=== PATIENT | female | born 1975 | race Caucasian/White ===

== ENCOUNTER 2021-11-26 09:51 | Inpatient (IN) | payer OTHER, SELFPAY ==
--- NOTE | ~2021-11-26 | US_ITS ---
EXAMINATION: US ABDOMEN COMPLETE CLINICAL INFORMATION: Right upper quadrant and epigastric tenderness to palpation. Nausea, vomiting, bilateral flank pain.. COMPARISON: None TECHNIQUE: Real-time imaging of the abdominal viscera. FINDINGS: PANCREAS: Normal. ABDOMINAL AORTA: The proximal, mid, and distal segments are normal in caliber. INFERIOR VENA CAVA: Visualized portions are normal. LIVER: The liver is normal in size. The liver contour is normal. Diffuse increased echogenicity of the liver parenchyma suggesting steatosis or other hepatocellular disease. No focal hepatic lesion. There is no intrahepatic biliary duct dilatation seen. GALLBLADDER: The gallbladder is physiologically distended. Multiple mobile gallstones are present. No evidence of gallbladder wall thickening or pericholecystic fluid. Impacted in the neck of the gallbladder. The gallbladder wall thickness is at the upper limits of normal for size. There is no pericholecystic fluid. The patient does report tenderness over the region of the gallbladder. COMMON BILE DUCT: Normal in caliber measuring 0.6 cm in diameter. RIGHT KIDNEY: Normal. No hydronephrosis. No renal calculi or focal parenchymal lesions. The kidney measures 12.3 cm in maximum dimension. LEFT KIDNEY: Normal. No hydronephrosis. No renal calculi or focal parenchymal lesions. The kidney measures 12.2 cm in maximum dimension. SPLEEN: Normal. The spleen measures 9.7 cm in maximum dimension. FREE FLUID: None. US/US abdomen complete IMPRESSION: There are gallstones and tenderness over the region of the gallbladder with gallbladder wall at the upper limits of normal for size and no pericholecystic fluid. Findings are somewhat equivocal though suggestive for cholecystitis. Would correlate with clinical exam findings and if there are concerns for cholecystitis, further evaluation could be considered with HIDA. Hepatic steatosis.
[2021-11-26 09:58] VITALS: BP 133/85; BP 160/80; PULSE 105; PULSE 110; RESP 18; TEMP 36.9; O2SAT 93; O2SAT 98; BMI 38.2
--- NOTE | 2021-11-26 10:11 | ECG_ITS ---
Test Reason : vomitting Blood Pressure : / mmHG Vent. Rate : 102 BPM Atrial Rate : 102 BPM P-R Int : 126 ms QRS Dur : 080 ms QT Int : 394 ms P-R-T Axes : 055 083 075 degrees QTc Int : 513 ms Sinus tachycardia Otherwise normal ECG When compared with ECG of 16-FEB-2009 22:22, QT has lengthened Referred By: Estrellita Caputo Electronically Signed By:CLARIBEL EVANGELISTA
--- NOTE | 2021-11-26 10:15 | ED_ITS ---
HPI - General Adult General Chief complaint: Nausea/Vomiting/Diarrhea Stated complaint: ABD PAIN, NSUSEA,VOMITING X'S 3 DAYS Time Seen by Provider: 11/26/21 10:04 Source: patient Mode of arrival: ambulatory History of Present Illness HPI narrative: 45-year-old female with no significant past medical history presenting to the ED complaining of upper abdominal pain, nausea, and vomiting x3 days. Reports unable to tolerate p.o. denies fever, chills, diarrhea/constipation, dysuria/hematuria. Admits was seen at [facility] on Thursday had labs and COVID-19 test drawn in waiting room and left prior to eval Onset (ago): day(s) Related Data Home Medications Medication Instructions Recorded Confirmed albuterol sulfate 90 mcg/actuation 2 puff INHALATION Q6H PRN 11/26/21 11/26/21 aerosol inhaler calcium carbonate 600 mg-vitamin 1 tab PO BID 11/26/21 11/26/21 D3 10 mcg (400 unit) tablet Allergies Allergy/AdvReac Type Severity Reaction Status Date / Time No Known Allergies Allergy Unverified 04/19/20 16:17 Review of Systems Review of Systems: Constitutional: No Fever, No Chills, No Night Sweats, No Fatigue, No Malaise ENT/Mouth: No Ear Pain, No Nasal Congestion, No sore throat, No Rhinorrhea, No Swallowing Difficulty Eyes: No Eye Pain, No Swelling, No Redness Cardiovascular: No Chest Pain, No SOB, No Edema, No Palpitations Respiratory: No Cough, No Sputum, No Dyspnea Gastrointestinal: + Nausea, + Vomiting, No Diarrhea, No Constipation, + Abdominal pain Genitourinary: No irregular bleeding, No Dysuria, No Urinary Frequency, No Hematuria, No Flank Pain, No Urinary Flow Changes, No Hesitancy Musculoskeletal: No joint pain, No Myalgias, No Joint Swelling Skin: No Skin Lesions, No rash Neuro: No Weakness, No Dizziness, No Headache Yes all other systems are reviewed and are negative [facility] Past Medical History Attestation statement: The following information was validated with the patient. Social History Social History Advance Directives: No Advance Directives Information Provided: No Physical Exam ED Vital Signs: Vital Signs - 24 hr 11/26/21 09:58 Temperature 98.4 F Pulse Rate 110 H Respiratory Rate 18 Blood Pressure 133/85 Pulse Oximetry 93 BMI result Body Mass Index 38.2 Const General: cooperative, healthy appearing, no acute distress, well developed, alert, awake and Physically active Orientation/consciousness: patient oriented x3 Limitations: no limitations HENMT Head: Yes normal to inspection and Yes atraumatic Ears: hearing grossly normal bilaterally General nose exam: Normal external nose present Face and sinus: Yes normal facial exam Eyes General: appearance normal, both eyes and all related structures EOM: EOMs intact bilaterally Neck Neck: Yes normal visual inspection and Yes no meningeal signs Resp Effort & Inspection: normal respiratory effort and no respiratory distress Auscultation: clear to auscultation bilaterally Cardio Rate: regular rate Heart sounds: S1 normal heart sound present and S2 normal heart sound present GI Inspection: Yes normal to inspection Palpation (GI): Soft to palpation, Tenderness to palpation present (GI) in the epigastrum and in the RUQ, no guarding and not rigid General: Yes CVA tenderness bilateral Back/Spine/Pelvis Back: CVA tenderness Skin Rashes: no rashes Wounds: no wounds Neuro General: patient oriented x3, tone normal and no meningeal signs Gait exam (Neuro): Normal gait present Extrem General: Yes normal to inspection Course Course Course Narrative: -1119--leukocytosis of 18,000 > likely reactive from nausea/vomiting, lactic/blood cultures will be obtained and empiric Zosyn. Still low suspicion for severe sepsis. Labs otherwise unremarkable -labs otherwise unremarkable. Lactic acid negative. US abdomen complete IMPRESSION: There are gallstones and tenderness over the region of the gallbladder with gallbladder wall at the upper limits of normal for size and no pericholecystic fluid. Findings are somewhat equivocal though suggestive for cholecystitis. Would correlate with clinical exam findings and if there are concerns for cholecystitis, further evaluation could be considered with HIDA. ? Hepatic steatosis. >> surgery, Dr. Dean consulted -Dr. Dean evaluated patient in the ED, plan for cholecystectomy likely tomorrow Medical Decision Making [facility] Narrative Medical decision making narrative: 45-year-old female with no significant past medical history presenting to the ED complaining of upper abdominal pain, nausea, and vomiting x3 days. On exam tachycardic likely from dehydration and pain, nontoxic, abdomen soft with epigastric/RUQ and bilateral CVA tenderness, no rebound or guarding. Concern for cholecystitis/lithiasis vs pancreatitis vs ? Renal stone or pyelo. Lower concern for appendicitis/diverticulitis. Unlikely ACS Plan: EKG, labs, UA, abdomen ultrasound, IVF, symptomatic remedies, re-evaluate Low concern for severe sepsis at this time Medical Records Medical records reviewed: Yes I reviewed the patient's medical records. Lab Data Lab results reviewed: Yes I reviewed the patient's lab results. Result diagrams: 11/26/21 10:28 11/26/21 10:28 Labs: Lab Results 11/26/21 11/26/21 11/26/21 Range/Units 10:28 10:28 11:38 WBC 18.0 H (4.8-10.8) X10*3/uL RBC 4.94 (4.20-5.50) X10*6/uL Hgb 14.3 (12.0-16.0) g/dl Hct 42.6 (37.0-47.0) % MCV 86.2 (80.0-98.0) fL MCH 28.9 (27.0-33.0) pg MCHC 33.6 (31.0-35.0) g/dl RDW 13.0 (11.0-16.0) % Plt Count 531 H (160-400) X10*3/uL MPV 9.6 (9.4-12.3) fL Immature Gran % (Auto) 0.4 (0.0-0.4) % Neut % (Auto) 76.9 H (45-73) % Lymph % (Auto) 15.4 L (20-40) % [place] % (Auto) 6.2 (2-11) % Eos % (Auto) 0.5 (0-4) % Baso % (Auto) 0.6 (0-2) % Lymph # (Auto) 2.8 (1.2-4.9) X10*3/uL [place] # (Auto) 1.1 (0.1-1.2) X10*3/uL Eos # (Auto) 0.1 (0.0-0.4) X10*3/uL Baso # (Auto) 0.1 (0.0-0.2) X10*3/uL Abs Immat Gran (auto) 0.08 H (0.00-0.03) X10*3/uL Absolute Neuts (auto) 13.9 H (2.0-8.3) x10*3/uL Absolute Nucleated RBC 0.000 (0.0-0.012) X10*3/uL Nucleated RBC % (auto) 0.0 (0.0-0.2) /100WBC Sodium 137 (135-145) mmol/L Potassium 3.9 (3.3-5.1) mmol/L Chloride 105 (96-108) mmol/L Carbon Dioxide 23 (22-29) mmol/L Anion Gap 13 (12-20) BUN 10 (9-16) mg/dL Creatinine 0.71 (0.5-1.4) mg/dL Estim Creat Clear Calc 101.1 Estimated GFR > 60 Random Glucose 114 (60-115) mg/dL Lactic Acid 1.3 (0.5-2.0) mmol/L Calcium 9.9 (8.4-10.2) mg/dL Magnesium 1.9 (1.6-2.6) mg/dL Total Bilirubin 0.6 (0.0-1.0) mg/dL Direct Bilirubin 0.2 (0.0-0.5) mg/dL AST 18 (5-31) U/L ALT 19 (0-31) U/L Alkaline Phosphatase 91 (39-117) U/L Total Protein 7.7 (6.5-8.0) g/dL Albumin 4.1 (3.5-5.0) g/dL Lipase 21 (8-78) U/L COVID-19 ([facility]) (Negative) COVID-19 Clin Com 11/26/21 Range/Units 11:43 WBC (4.8-10.8) X10*3/uL RBC (4.20-5.50) X10*6/uL Hgb (12.0-16.0) g/dl Hct (37.0-47.0) % MCV (80.0-98.0) fL MCH (27.0-33.0) pg MCHC (31.0-35.0) g/dl RDW (11.0-16.0) % Plt Count (160-400) X10*3/uL MPV (9.4-12.3) fL Immature Gran % (Auto) (0.0-0.4) % Neut % (Auto) (45-73) % Lymph % (Auto) (20-40) % [place] % (Auto) (2-11) % Eos % (Auto) (0-4) % Baso % (Auto) (0-2) % Lymph # (Auto) (1.2-4.9) X10*3/uL [place] # (Auto) (0.1-1.2) X10*3/uL Eos # (Auto) (0.0-0.4) X10*3/uL Baso # (Auto) (0.0-0.2) X10*3/uL Abs Immat Gran (auto) (0.00-0.03) X10*3/uL Absolute Neuts (auto) (2.0-8.3) x10*3/uL Absolute Nucleated RBC (0.0-0.012) X10*3/uL Nucleated RBC % (auto) (0.0-0.2) /100WBC Sodium (135-145) mmol/L Potassium (3.3-5.1) mmol/L Chloride (96-108) mmol/L Carbon Dioxide (22-29) mmol/L Anion Gap (12-20) BUN (9-16) mg/dL Creatinine (0.5-1.4) mg/dL Estim Creat Clear Calc Estimated GFR Random Glucose (60-115) mg/dL Lactic Acid (0.5-2.0) mmol/L Calcium (8.4-10.2) mg/dL Magnesium (1.6-2.6) mg/dL Total Bilirubin (0.0-1.0) mg/dL Direct Bilirubin (0.0-0.5) mg/dL AST (5-31) U/L ALT (0-31) U/L Alkaline Phosphatase (39-117) U/L Total Protein (6.5-8.0) g/dL Albumin (3.5-5.0) g/dL Lipase (8-78) U/L COVID-19 ([facility]) Negative (Negative) COVID-19 Clin Com See Note ECG Data Attestation: I personally reviewed and interpreted this ECG as follows: Interpretation: EKG sinus tachycardia rate of 102. OK interval 126. QT 394, length when compared to prior EKGs. No STEMI. nonischemic Discharge Plan Discharge Clinical Impression: Acute cholecystitis Patient Disposition: Admitted As Inpatient
[2021-11-26 10:38] LABS: MANUAL DIFF FLAG NO
[2021-11-26 10:40] LABS: Basophils Absolute Auto 0.1 X10*3/uL (0.0-0.2); Basophils Percent Auto 0.6 % (0-2); Eosinophils Absolute Auto 0.1 X10*3/uL (0.0-0.4); Eosinophils Percent Auto 0.5 % (0-4); Hematocrit 42.6 % (37.0-47.0); Hemoglobin 14.3 g/dl (12.0-16.0); Imm Gran Abs Auto 0.08 X10*3/uL (0.00-0.03); Imm Gran Pct Auto 0.4 % (0.0-0.4); Lymphocytes Absolute Auto 2.8 X10*3/uL (1.2-4.9); Lymphocytes Percent Auto 15.4 % (20-40); Mean Corpuscular HGB Conc 33.6 g/dl (31.0-35.0); Mean Corpuscular Hemoglobin 28.9 pg (27.0-33.0); Mean Corpuscular Volume 86.2 fL (80.0-98.0); Mean Platelet Volume 9.6 fL (9.4-12.3); Monocytes Absolute Auto 1.1 X10*3/uL (0.1-1.2); Monocytes Percent Auto 6.2 % (2-11); Neutrophils Absolute Auto 13.9 x10*3/uL (2.0-8.3); Neutrophils Percent Auto 76.9 % (45-73); Platelet Count 531 X10*3/uL (160-400); Red Blood Count 4.94 X10*6/uL (4.20-5.50)
[2021-11-26 10:58] LABS: Alanine Aminotransferase 19 U/L (0-31); Albumin Level 4.1 g/dL (3.5-5.0); Alkaline Phosphatase 91 U/L (39-117); Anion Gap 13 (12-20); Aspartate Amino Transferase 18 U/L (5-31); Bilirubin Direct 0.2 mg/dL (0.0-0.5); Bilirubin Total 0.6 mg/dL (0.0-1.0); Blood Urea Nitrogen 10 mg/dL (9-16); Calcium 9.9 mg/dL (8.4-10.2); Carbon Dioxide 23 mmol/L (22-29); Chloride 105 mmol/L (96-108); Creatinine Clr Calc Pharmacy 101.1; Estimated Glomerular Filt Rate > 60; Glucose Random 114 mg/dL (60-115); Lipase 21 U/L (8-78); Magnesium 1.9 mg/dL (1.6-2.6); Potassium 3.9 mmol/L (3.3-5.1); Sodium 137 mmol/L (135-145); Total Protein 7.7 g/dL (6.5-8.0)
[2021-11-26] MEDS: Famotidine/PF 20 MG/2 ML VIAL IVPUSH (11:09)
[2021-11-26] MEDS: 0.9 % Sodium Chloride 1,000 ML 999 ML IV ×2 (11:09→11:55)
[2021-11-26] MEDS: Lidocaine HCl Viscous 2 % 15 ML SOLUTION MUCOUS MEM (11:09)
[2021-11-26] MEDS: Ketorolac Tromethamine 15 MG/ML VIAL IVPUSH (11:09)
[2021-11-26] MEDS: Magnesium Hydrox/Alum Hydrox 30 ML ORAL.SUSP PO (11:09)
--- NOTE | 2021-11-26 11:44 | PHA.MEDREC ---
Pharmacy Consult ? Medication Reconciliation Pharmacy has completed the medication reconciliation. No remarkable issues. Marie Whaley, MonaeD
[2021-11-26] MEDS: Piperacillin Sodium/Tazobactam 3.375 GM in 0.9 % Sodium Chloride 50 ML IV ×3 (11:55→23:47)
[2021-11-26 11:58] LABS: Lactic Acid 1.3 mmol/L (0.5-2.0)
[2021-11-26 12:12] LABS: COVID-19 Test Negative (Negative); IDNOW Serial# 16C4AD1C
--- NOTE | 2021-11-26 12:53 | PM.HPGS ---
History of Present Illness History of Present Illness Date of Service: 11/26/21 Chief complaint: acute cholecystitis Narrative: Dasia Gomez is a 45 year old female presenting with complaints of abdominal pain in the upper abdomen for three days. The pain is associated with nausea, vomiting and anorexia. She denies fever, chills, diarrhea, constipation, or bloody stools. She presents to the ED for further evaluation. Review of Systems Constitutional: Constitutional: Denies chills, Denies fever(s), Denies headache(s) and Denies poor appetite ENT: Denies dizziness and Denies headache(s) Cardiovascular: Cardiovascular: Denies chest pain, Denies rapid heart rate, Denies palpitations and Denies slow heart rate Respiratory: Respiratory: Denies chest congestion, Denies cough, Denies pain on inspiration and Denies wheezing Gastrointestinal: Gastrointestinal: Reports abdominal pain, Reports bloating, Denies change in stool character, Denies constipation, Denies diarrhea, Reports nausea, Reports vomiting and Denies hematemesis Musculoskeletal: Musculoskeletal: Denies back pain, Denies arthralgias, Denies joint swelling and Denies numbness Integumentary/Breasts: Skin/Breast: Denies change in pigmentation, Denies erythema and Denies rash Neurologic: Denies dizziness, Denies headache(s) and Denies numbness Psychiatric: Psychiatric: Denies anxiety and Denies depression Endocrine: Endocrine: Denies palpitations Hematologic/Lymphatic: Hematologic/Lymphatic: Denies easy bleeding, Denies easy bruising and Denies lymphadenopathy Allergic/Immunologic: Allergic/Immunologic: Denies wheezing PMFSH Social History Social History Advance Directives: No Advance Directives Information Provided: No Meds Allergies Allergy/AdvReac Type Severity Reaction Status Date / Time No Known Allergies Allergy Unverified 04/19/20 16:17 Active Medications: Current Medications Pharmacy Consult (Consult Rx Perform Med Rec) 1 each MISCELLANE ONCE PRN PRN Reason: Consult order Home Medications Medication Instructions Recorded Confirmed Last Taken Type albuterol sulfate 90 mcg/actuation 2 puff INHALATION Q6H PRN 11/26/21 11/26/21 Unknown History aerosol inhaler calcium carbonate 600 mg-vitamin 1 tab PO BID 11/26/21 11/26/21 Unknown History D3 10 mcg (400 unit) tablet Physical Exam Vital Signs: Vital Signs: Last Vital Signs Temp 98.4 F 11/26/21 09:58 Pulse 110 H 11/26/21 09:58 Resp 18 11/26/21 09:58 BP 133/85 11/26/21 09:58 Pulse Ox 93 11/26/21 09:58 BMI result Body Mass Index 38.2 Const: General: cooperative, comfortable and well developed Nutritional Appearance: well nourished Orientation/consciousness: patient oriented x3 Eyes: Sclerae: sclerae normal EOM: EOMs intact bilaterally Neck: Neck: Yes normal visual inspection Resp: Effort & Inspection: normal respiratory effort, no cough, no respiratory distress and no stridor Cardio: Jugular venous distension: no JVD GI: Inspection: Yes normal to inspection Palpation (GI): Soft to palpation, Tenderness to palpation present (GI) in the RUQ and Lorenzo's sign positive, no guarding, not rigid and No Rebound tenderness present Percussion: Yes normal to percussion Auscultation: normal bowel sounds Rectal Exam - Female: deferred Skin: Other: normal color General skin exam: dry skin Rashes: no rashes Neuro: General: patient oriented x3 and no focal motor deficits Extrem: General: Yes full ROM and Yes no clubbing, cyanosis or edema Psych: Appearance: grossly normal Results Results Labs: Short CBC 11/26/21 Range/Units 10:28 WBC 18.0 H (4.8-10.8) X10*3/uL Hgb 14.3 (12.0-16.0) g/dl Hct 42.6 (37.0-47.0) % Plt Count 531 H (160-400) X10*3/uL BMP 11/26/21 10:28 Sodium 137 Potassium 3.9 Chloride 105 Carbon Dioxide 23 BUN 10 Creatinine 0.71 Calcium 9.9 Liver Function 11/26/21 Range/Units 10:28 Total Bilirubin 0.6 (0.0-1.0) mg/dL Direct Bilirubin 0.2 (0.0-0.5) mg/dL AST 18 (5-31) U/L ALT 19 (0-31) U/L Alkaline Phosphatase 91 (39-117) U/L Albumin 4.1 (3.5-5.0) g/dL Assessment and Plan (1) Acute cholecystitis: Status: Acute Plan 45 year old female patient presenting with compliants of abdominal pain in the RUQ found on ultrasound to have multiple gallstones in the gallbladder and tenderness on palpation of the gallbladder. Findings are consistent with acute cholecystitis due to cholelithiasis. I discussed the treatment options and recommended a laparoscopic or possible open cholecystectomy. After discussion of the procedure, alternatives and risks, she consents to the surgery. She will be added on to the OR schedule for tomorrow. She may have clear liquids today, NPO after midnight. Quality Stroke Does the patient have a stroke diagnosis?: No VTE Prior VTE?: No VTE Risk Level:: Surgical - moderate VTE Device Contraindication: N/A - Device Ordered VTE Drug Contraindication: Treatment Not Indicated Procedures Date of Service Date of Service: 11/26/21
--- NOTE | 2021-11-26 12:57 | PC.NURSE ---
Dr. Santiago at bedside
[2021-11-26 13:17] LABS: Appearance Urine CLEAR; Color Urine YELLOW; Glucose Urine UA NEG (NEG); Leukocyte Esterase Urine TRACE (NEG); Nitrite Urine NEG (NEG); PH 6.5 (5.0-8.0); Specific Gravity - Urine 1.015 (1.005-1.025); UACC Culture Trigger NO; Urine Blood 2+ (NEG); Urine Ketones NEG (NEG); Urine Protein 1+ MG/DL (NEG-TRACE)
[2021-11-26 13:57] LABS: Squamous Epithelial Cell Urine 2+ /LPF
[2021-11-26 13:58] LABS: Bacteria Urine TRACE /LPF; WBC Urine 0-2 /HPF (0-4)
[2021-11-26 13:59] LABS: RBC Urine 0-2 /HPF (0)
[2021-11-26] MEDS: Dextrose 5 % and Lactated Ring 1,000 ML 125 ML IVCONT ×2 (13:59→23:51)
[2021-11-26 15:05] VITALS: BP 125/78; PULSE 87; TEMP 37.3; O2SAT 96
[2021-11-26 16:00] VITALS: BP 148/90; PULSE 87; RESP 18; TEMP 37; O2SAT 97
--- NOTE | 2021-11-26 16:48 | PC.NURSE ---
pt reporting pain, reports however that she does not feel that her pain is severe enough for oxycodone/dilaudid which are ordered for PRN. TC sent to Dr. Dean for PRN Tylenol.
[2021-11-26] MEDS: Acetaminophen 325 MG TABLET 650 MG PO (17:05)
[2021-11-26] MEDS: ondansetron HCL 4 MG/2 ML VIAL IVPUSH (17:05)
[2021-11-26 19:14] VITALS: BP 137/81; PULSE 80; RESP 18; TEMP 37.1; O2SAT 98
[2021-11-26] MEDS: Zolpidem Tartrate 5 MG TABLET PO (23:49)
[2021-11-26] MEDS: 0.9 % Sodium Chloride Flush 3 ML SYRINGE IVFLUSH (23:51)
[2021-11-27] VITALS (13 sets, daily range): BP systolic 104–159; BP diastolic 68–94; PULSE 80–97; RESP 16–20; TEMP 36.2–37.2; O2SAT 95–100
[2021-11-27] MEDS: Piperacillin Sodium/Tazobactam 3.375 GM in 0.9 % Sodium Chloride 50 ML IV (06:23)
--- NOTE | 2021-11-27 08:29 | MHC.CM.PN ---
CM met with Patient at bedside. Patient lives in an apartment with her 2 Sons, ages 11 & 21 years of age. Patient is functionally independent and working. Home no services is the goal and CM has initiated and will follow for dc planning. PCP is from [address] [place] [address] in [facility] and Patient has received [facility] vax X2.
[2021-11-27] MEDS: Dextrose 5 % and Lactated Ring 1,000 ML 125 ML IVCONT (08:37)
[2021-11-27] MEDS: 0.9 % Sodium Chloride Flush 3 ML SYRINGE IVFLUSH ×2 (08:39→22:35)
[2021-11-27 11:13] LABS: UPreg QC Valid YES; Urine Pregnancy NEGATIVE (NEGATIVE)
--- NOTE | 2021-11-27 13:08 | MHC.SHP ---
Pre-Procedural Eval Section A Date of Service: 11/27/21 The patient is an INPATIENT: Yes Section B Chief Complaint: acute cholecystitis Allergies: Allergies Allergy/AdvReac Type Severity Reaction Status Date / Time No Known Allergies Allergy Unverified 04/19/20 16:17 Plan Diagnosis/Plan: Unchanged I have reviewed the history and physical and performed a pertinent physical examination on my patient. No changes have occurred unless specified.
--- NOTE | 2021-11-27 13:16 | P.CONAN_ITS ---
[facility] Active Problems Active Problems: All Active Problems (Updated 11/26/21 @ 13:14 by SANDEEP Cabrera) Acute cholecystitis (Acute) Past Medical History Functional capacity: independent ambulation Patient : No Family History Family history of problems with anesthesia: No Surgical History History of Problems with Anesthesia: No Social History Social History Household Members: Children Housing: House Do you presently have visiting nurse or other home services: No Patient Tobacco Use Status: Current everyday Tobacco user Tobacco use type: Cigarette Cigarettes Per Day: 7 e-Cigarette/Vaping Use: Currently Using Second Hand Smoke Exposure: Yes Substance Use Type: Marijuana service: No Current occupational status: employed Meds Allergies Allergy/AdvReac Type Severity Reaction Status Date / Time No Known Allergies Allergy Unverified 04/19/20 16:17 Active Medications: Current Medications Acetaminophen (Acetaminophen 325 Mg Tablet) 650 mg PO QID PRN PRN Reason: headache, temp > 101, pain Last Admin: 11/26/21 17:05 Dose: 650 mg Documented by: Albuterol Sulfate (Albuterol Sulfate 90 Mcg 8 Gm Inhaler) 2 puff INHALE RQ6H PRN PRN Reason: Shortness Of Breath Hydromorphone HCl (Hydromorphone Hcl 1 Mg/Ml Syringe) 0.5 mg IVPUSH Q3H PRN; Protocol PRN Reason: Pain, Severe (Pain Scale 7-10) Dextrose/Lactated Ringer's (D5lr) 1,000 mls @ 125 mls/hr IVCONT .Q8H AMADEO Last Infusion: 11/27/21 10:00 Dose: 0 mls/hr Documented by: Piperacillin Sod/Tazobactam (Sod 3.375 gm/ Sodium Chloride) 50 mls @ 100 mls/hr IV Q6H AMADEO Last Infusion: 11/27/21 07:18 Dose: Infused Documented by: Ondansetron HCl (Ondansetron Hcl 4 Mg/2 Ml Vial) 4 mg IVPUSH Q8H PRN PRN Reason: Nausea and Vomiting Last Admin: 11/26/21 17:05 Dose: 4 mg Documented by: Oxycodone HCl (Oxycodone Hcl Immed Release 5 Mg Tablet) 5 mg PO Q6H PRN PRN Reason: Pain, Moderate (Pain Scale 4-6 Pharmacy Consult (Consult Rx Perform Med Rec) 1 each MISCELLANE ONCE PRN PRN Reason: Consult order Sodium Chloride (0.9 % Sodium Chloride Flush 3 Ml Syringe) 3 ml IVFLUSH QSHIFT AMADEO Last Admin: 11/27/21 08:39 Dose: 3 ml Documented by: Zolpidem Tartrate (Zolpidem Tartrate 5 Mg Tablet) 5 mg PO BEDTIME PRN PRN Reason: Insomnia Last Admin: 11/26/21 23:49 Dose: 5 mg Documented by: Home Medications Medication Instructions Recorded Confirmed Last Taken Type albuterol sulfate 90 mcg/actuation 2 puff INHALATION Q6H PRN 11/26/21 11/26/21 Unknown History aerosol inhaler calcium carbonate 600 mg-vitamin 1 tab PO BID 11/26/21 11/26/21 Unknown History D3 10 mcg (400 unit) tablet Exam Exam Date and Time: November 27, 2021 1316 Height,Weight and Vital Signs: Height 5 ft 1 in Weight 91.7 kg Last Vital Signs Temp 97.9 F 11/27/21 12:43 Pulse 95 11/27/21 12:43 Resp 20 11/27/21 12:43 BP 141/83 H 11/27/21 12:43 Pulse Ox 98 11/27/21 12:43 Pertinent Lab Results Pertinent Lab Results: Laboratory Tests 11/26/21 11/26/21 11/26/21 10:28 10:28 11:38 WBC 18.0 H RBC 4.94 Hgb 14.3 Hct 42.6 MCV 86.2 MCH 28.9 MCHC 33.6 RDW 13.0 Plt Count 531 H MPV 9.6 Immature Gran % (Auto) 0.4 Neut % (Auto) 76.9 H Lymph % (Auto) 15.4 L [place] % (Auto) 6.2 Eos % (Auto) 0.5 Baso % (Auto) 0.6 Lymph # (Auto) 2.8 [place] # (Auto) 1.1 Eos # (Auto) 0.1 Baso # (Auto) 0.1 Abs Immat Gran (auto) 0.08 H Absolute Neuts (auto) 13.9 H Absolute Nucleated RBC 0.000 Nucleated RBC % (auto) 0.0 Sodium 137 Potassium 3.9 Chloride 105 Carbon Dioxide 23 Anion Gap 13 BUN 10 Creatinine 0.71 Estim Creat Clear Calc 101.1 Estimated GFR > 60 Random Glucose 114 Lactic Acid 1.3 Calcium 9.9 Magnesium 1.9 Total Bilirubin 0.6 Direct Bilirubin 0.2 AST 18 ALT 19 Alkaline Phosphatase 91 Total Protein 7.7 Albumin 4.1 Lipase 21 Urine Color Urine Appearance Urine pH Ur Specific [place] Urine Protein Urine Glucose (UA) Urine Ketones Urine Blood Urine Nitrite Ur Leukocyte Esterase Urine RBC Urine WBC Ur Squamous Epith Cells Urine Bacteria Urine Test COVID-19 ([facility]) COVID-19 Clin Com 11/26/21 11/26/21 11/27/21 11:43 12:54 10:46 WBC RBC Hgb Hct MCV MCH MCHC RDW Plt Count MPV Immature Gran % (Auto) Neut % (Auto) Lymph % (Auto) [place] % (Auto) Eos % (Auto) Baso % (Auto) Lymph # (Auto) [place] # (Auto) Eos # (Auto) Baso # (Auto) Abs Immat Gran (auto) Absolute Neuts (auto) Absolute Nucleated RBC Nucleated RBC % (auto) Sodium Potassium Chloride Carbon Dioxide Anion Gap BUN Creatinine Estim Creat Clear Calc Estimated GFR Random Glucose Lactic Acid Calcium Magnesium Total Bilirubin Direct Bilirubin AST ALT Alkaline Phosphatase Total Protein Albumin Lipase Urine Color YELLOW Urine Appearance CLEAR Urine pH 6.5 Ur Specific [place] 1.015 Urine Protein 1+ H Urine Glucose (UA) NEG Urine Ketones NEG Urine Blood 2+ H Urine Nitrite NEG Ur Leukocyte Esterase TRACE H Urine RBC 0-2 Urine WBC 0-2 Ur Squamous Epith Cells 2+ Urine Bacteria TRACE Urine Test NEGATIVE COVID-19 ([facility]) Negative COVID-19 Clin Com See Note Airway Mallampati Class: III TM Dist: >3cm Neck ROM: Full Heart: RRR Lungs: CTA Assessment and Plan Final Anesthetic Review Family History of Problems with Anesthesia: No History of Problems with Anesthesia: No ASA Class: III Final Preanesthetic Review: No Changes in Pt Med Stat, Meds/Allgs Chart Reviewed, Consent Obtained/Reviewed and Anes Risks/Benef Reviewed Patient Risk: Intermediate Procedure Risk: Low Anesthetic Plan Anesthetic Plan: GA Disposition: Standard PACU
--- NOTE | 2021-11-27 14:35 | W.PM.OPN ---
Operative Note Operative Note Date of Service: 11/27/21 Narrative: Preoperative diagnosis: Acute cholecystitis, cholelithaisis Postoperative diagnosis: Same Procedure: Laparoscopic cholecystectomy Surgeon: Kip Dean MD Installation & Maintenance Executive: LUCAS Lucas Anesthesia: General endotracheal Indications for procedure:45 year old female with severe abdominal pain in the right upper quadrant found to have multiple gallstones in the gallbladder and tenderness on palpation of the gallbladder. Findings consistent with acute cholecystitis. Operative findings:Acutely inflamed gallbladder with multiple gallstones Specimen: gallbladder Estimated blood loss:2 mls Complications: none Procedure details: Patient was brought to the OR and placed in a supine position. After administering general anesthesia the patient's abdomen was prepped with ChloraPrep and draped in a sterile fashion. Local anesthesia consisting of 0.25% Sensorcaine without epinephrine was infiltrated in a periumbilical region. A 5 mm incision was made above the umbilicus in a transverse fashion. The Veress needle was then inserted while elevating abdominal cavity with towel clips. After positive drop test the abdomen was insufflated to a pressure of 15 mm of mercury. The Veress needle was then removed and a 5 mm trocar inserted. The camera was inserted in the abdomen explored. A 12 mm trocar was then placed in the epigastrium. Two 5 mm trocars placed in the right upper quadrant by the anesthesiologist assistant certified. The patient was placed in reverse Trendelenburg positioning and rotated to the left. The gallbladder was grasped with the fundus and retracted cephalad by the anesthesiologist assistant certified. The infundibulum was then grasped and retracted away from the liver bed, also by the anesthesiologist assistant certified. The Dolphin dissected was then used by the surgeon to dissect the peritoneum off the infundibulum to reveal the junction with the cystic duct. Cystic artery was noted slightly medial and posterior to the cystic duct. After obtaining a critical view the cystic duct was doubly clipped and divided. The cystic artery was then doubly clipped and divided. The gallbladder was then dissected off the liver bed using electrocautery with an L hook. Hemostasis was assured all times using the electrocautery. When the gallbladder is completely dissected off the liver bed was placed in an Endo-Catch bag and brought out through the epigastric incision. The gallbladder was sent to pathology for further examination. The abdomen was then re-examined. The liver bed was irrigated and suctioned dry. No bleeding or bile leak could be identified. CO2 was then evacuated and all trocars removed. Fascia was closed at the epigastric incision using a [id number] 0 Polysorb suture. Skin was closed in all incisions using a subcuticular 4 0 Polysorb suture by both the surgeon and anesthesiologist assistant certified. Sterile dressings consisting of Steri-Strips, 2 x 2 gauze, and Tegaderm were then applied. The patient tolerated the procedure well. Sponge instrument and needle counts reported as correct. The patient was transferred to PACU in stable condition.
[2021-11-27] MEDS: oxyCODONE HCl Immed Release 5 MG TABLET PO (22:35)
[2021-11-27] MEDS: Zolpidem Tartrate 5 MG TABLET PO (22:36)
[2021-11-28 00:13] VITALS: BP 146/84; PULSE 91; RESP 18; TEMP 37; O2SAT 94
[2021-11-28] MEDS: Acetaminophen 325 MG TABLET 650 MG PO (05:52)
[2021-11-28] MEDS: Dextrose 5 % and Lactated Ring 1,000 ML 125 ML IVCONT (05:53)
--- NOTE | 2021-11-28 07:18 | HO.POSTANES ---
Post Anesthesia Evaluation Post Anesthesia Evaluation Vital Signs: Vital Signs Temp Pulse Resp BP Pulse Ox 11/28/21 00:13 98.6 F 91 18 146/84 H 94 11/27/21 19:28 98.9 F 87 18 145/68 H 100 Anesthesia: General Endotracheal-GETA Mental Status: Awake Pain Control: Satisfactory Nausea/Vomiting: None Hydration: Adequate Anesthesia-Related Issues: No Anes. Related Issues
[2021-11-28 07:26] VITALS: BP 128/86; PULSE 78; RESP 17; TEMP 36.9; O2SAT 98
--- NOTE | 2021-11-28 08:56 | MHC.CM.PN ---
Patient has been medically cleared for dc to home today, self care.
[2021-11-28] MEDS: oxyCODONE HCl Immed Release 5 MG TABLET PO (09:43)
--- NOTE | 2021-11-28 10:19 | P.DS_ITS ---
DS: Providers Provider Date of Service: 11/28/21 Date of admission: 11/26/21 13:47 Primary care physician: Clara Physician Attending physician on admission: Kip Dean Attending physician on discharge: Kip Dean DS: Diagnosis Discharge Diagnosis (1) Acute cholecystitis: Status: Acute DS: Summary Hospital Course Hospital Course: BRIEF HPI: Dasia Gomez is a 45 year old female presenting with complaints of abd ominal pain in the upper abdomen for three days.? The pain is associated with nausea, vomiting and anorexia.? She denies fever, chills, diarrhea, constipation, or bloody stools.? She presented to the ED for further evaluation.?Ultrasound revealed multiple gallstones in the gallbladder and tenderness to palpation over the gallbladder. She also had a leukocytosis of 18. HOSPITAL COURSE: The patient was admitted to the surgical service for further treatment of acute cholecystitis due to cholelithiasis.? Treatment options were discussed and it was recommended to proceed with a laparoscopic or possible open cholecystectomy.? After discussion of the procedure, alternatives and risks, she consented to the surgery.? She was added on to the OR schedule for the following day.? She was started on IV zosyn, IVF, PRN analgesics and clear liquids for the day and NPO after midnight.? On 11/26/21, a laparoscopic cholecystectomy was performed by Dr. Dean without complication. The patient tolerated the procedure well, completed routine recovery in PACU and was observed post operatively on [facility]. The patient had an uncomplicated recovery course. On POD #1, she felt fairly well. Her pain was controlled. She was tolerating a solid diet. She was ambulating without difficulty. She had a benign abdominal exam with clean dressings. She felt ready for discharge. She was discharged to home on 11/28/21 in stable condition. She is to follow up in 1 week in the office with Dr. Dean. Status at Discharge Functional status at discharge: independent ambulation Overall status at discharge: patient is progressing back to baseline Time Spent with Patient Time attestation: Total time spent providing and/or coordinating discharge services: Discharge coordination time: Less than 30 minutes Quality: Safe Use of Opioids Does Pt have an Active Cancer Diagnosis on the Problem List?: No Quality: Stroke Does the patient have a stroke diagnosis?: No Physical Exam Vital Signs: Vital Signs: Last Vital Signs Temp 98.5 F 04/28/22 07:26 Pulse 78 11/28/21 07:26 Resp 17 11/28/21 07:26 BP 128/86 11/28/21 07:26 Pulse Ox 98 11/28/21 07:26 BMI result Body Mass Index 38.2 Const: General: comfortable, no acute distress and alert Orientation/consciousness: patient oriented x3 GI: Inspection: No distended and Yes incision (dressings c/d/i) Skin: General skin exam: no rashes or lesions noted and no jaundice Neuro: General: patient oriented x3 DS: Data Data Completed and Pending Pending studies at discharge: Pending at discharge 11/27/21 14:19 Surgical [PTH] Routine Labs on day of discharge: Laboratory Results - last 24 hr 11/27/21 10:46 Urine Test NEGATIVE Preliminary micro results at discharge 11/26/21 11:35 Blood Culture - Preliminary Blood - Venous No growth after 24 hours. 11/26/21 11:38 Blood Culture - Preliminary Blood - Venous No growth after 24 hours. Discharge Plan Discharge Patient Disposition: Home, Self-Care Discharge Diagnosis: acute cholecystitis Referrals: Kip Dean MD [Physician] - 1 Week Physician,Clara Najera [Primary Care Provider] - 1 Week Discharge Medications: New oxycodone-acetaminophen [Endocet] 5-325 mg tablet 1 tab PO Q6H PRN (Reason: pain (scale score 7-10)) Qty: 14 0RF Continued calcium carbonate-vitamin D3 600 mg-10 mcg (400 unit) tablet 1 tab PO BID 0RF albuterol sulfate 90 mcg/actuation Hfa Aerosol Inhaler 2 puff INHALATION Q6H PRN (Reason: Shortness Of Breath) 0RF Discharge Orders: Discharge Order (Routine); Ordered 11/28/21 Ordered By: Kip Dean Diet: low fat, low cholesterol Activity on Discharge: No heavy lifting Stand Alone Forms: Patient Portal Discharge page, Work/School Release Care Plan Goals: Return to baseline health and gradual return to activity following recovery period. Health Concerns: Acute cholecystitis Asthma Plan of Treatment: S/p laparoscopic cholecystectomy F/u in office Assessment: Doing well post op
== END 2021-11-28 11:47 | disposition home or self-care (01) | DRG 263 ==
LOC: HO.ED 13:14 → HO.EDOVER 14:32 → HO.IMC 17:04
PROVIDERS: Anesthesiology; Physician Assistant; Admitting Provider Surgery; Emergency Provider Emergency Medicine; PCP Student in an Organized Health Care Education/Training Program; Visit Provider Surgery
PROC: 0FT44ZZ Resection of Gallbladder, Percutaneous Endoscopic Approach (ICD-10-PCS; CPT 47562; principal; 2021-11-27 14:00)
DX: K80.00 Calculus of gallbladder with acute cholecystitis without obstruction (principal); F17.210 Nicotine dependence, cigarettes, uncomplicated; Z20.822 Contact with and (suspected) exposure to COVID-19; Z71.6 Tobacco abuse counseling; Z79.899 Other long term (current) drug therapy
CPT/HCPCS: 36415; 76700; 80048; 80076; 81001; 81003; 81025; 83605; 83690; 83735; 85025; 87040; 87635; 88304; 93005; 96361; 96365; 96375; 99285; J1100; J1170; J1885; J2250; J2370; J2405; J2543; J3010

== ENCOUNTER → 2021-12-10 15:36 | Outpatient (BNVA) | payer OTHER, SELFPAY | PROVIDERS: PCP Student in an Organized Health Care Education/Training Program; Visit Provider Surgery | DX: Z48.815 Encounter for surgical aftercare following surgery on the digestive system (principal); Z90.49 Acquired absence of other specified parts of digestive tract | CPT/HCPCS: 99212 ==